=== PATIENT | male | born 1965 | race Caucasian/White ===

== ENCOUNTER 2019-06-16 13:11 | Emergency (ER) | payer BC ==
[2019-06-16] MEDS ORDERED: NA CHLORIDE 0.9% 1,000 ML ONE (13:31)
[2019-06-16 13:53] LABS: Absolute Lymphocytes (CBC) 3.5 K/uL (0.7-4.9); Basophils % 0.9 % (0-1.3); Hematocrit 43.2 % (39.6-49.0); Lymphocytes % 38.8 % (15.3-44.8); MPV 8.5 fL (7.6-11.3); RBC Red Blood Cell Count 4.85 M/uL (4.33-5.43)
--- NOTE | 2019-06-16 14:04 | RAD REPORT ---
EXAM DESCRIPTION: Flaco Single View06/16/2019 1:52 pm CLINICAL HISTORY: Chest pain COMPARISON: 2017 FINDINGS: The lungs appear clear of acute infiltrate. The heart is normal size IMPRESSION: No acute abnormalities displayed
[2019-06-16 14:10] LABS: Albumin 3.7 g/dL (3.4-5.0); Bilirubin Direct 0.2 mg/dL (0-0.2); Bilirubin Total 0.8 mg/dL (0.2-1.0); Magnesium 1.9 mg/dL (1.8-2.4); Potassium 4.2 mmol/L (3.5-5.1); Protein, Total 7.8 g/dL (6.4-8.2); Troponin (Emerg Dept Use Only) 0.04 ng/mL (0.0-0.045)
--- NOTE | 2019-06-16 15:13 | EKG ---
Test Date: 2019-06-16 Test Time: 13:30:18 Mule Rider: KORY MEASUREMENT RESULTS: Intervals: Rate: 65 MI: 160 QRSD: 90 QT: 404 QTc: 420 [place]: P: 37 MI: 160 QRS: 30 T: 32 INTERPRETIVE STATEMENTS: Normal sinus rhythm Possible Lateral infarct, age undetermined Inferior infarct, age undetermined Abnormal ECG Compared to ECG 09/24/2016 18:27:38 Sinus bradycardia no longer present ST (T wave) deviation no longer present Possible ischemia no longer present Myocardial infarct finding still present Electronically Signed On 06-16-19 15:12:50 CDT by Esequiel Moore
--- NOTE | 2019-06-16 17:48 | ER ---
Nurse's Notes [facility] Name: Ajith Villatoro Age: 53 yrs Sex: Male : 1965 Arrival Date: 06/16/2019 Time: 13:14 Bed 7 Private MD: Diagnosis: Chest pain, unspecified Presentation: 06/16 13:32 Presenting complaint: Patient states: couldn't sleep last night, was restless, woke up iw this morning and felt light headed, went to work and had a couple dizzy spells, also had some mild chest pain and mild SOB, hx of ME X 3 years ago. Transition of care: patient was not received from another setting of care. Onset of symptoms was June 16, 2019. Risk Assessment: Do you want to hurt yourself or someone else? Patient reports no desire to harm self or others. Initial Sepsis Screen: Does the patient meet any 2 criteria? No. Patient's initial sepsis screen is negative. Does the patient have a suspected source of infection? No. Patient's initial sepsis screen is negative. Care prior to arrival: None. 13:32 Method Of Arrival: Ambulatory 13:32 Acuity: BRITTANY 2 iw Historical: - Allergies: 13:34 PENICILLINS; iw - PMHx: 13:34 Hyperlipidemia; Hypertension; Myocardial infarction; iw - PSHx: 13:34 Heart stents; iw - Immunization history:: Adult Immunizations not up to date. - Social history:: Smoking status: Patient uses tobacco products, denies chronic smoking, but will smoke occasionally. - Family history:: not pertinent. - Ebola Screening: : Patient negative for fever greater than or equal to 101.5 degrees Fahrenheit, and additional compatible Ebola Virus Disease symptoms Patient denies exposure to infectious person Patient denies travel to an Ebola-affected area in the 21 days before illness onset No symptoms or risks identified at this time. - Hospitalizations: : No recent hospitalization is reported. Screenin:40 Abuse screen: Denies threats or abuse. Denies injuries from another. Nutritional sg screening: No deficits noted. Tuberculosis screening: No symptoms or risk factors identified. Never had TB. Fall Risk None identified. Assessment: 13:36 Reassessment: Patient appears in no apparent distress at this time. Patient and/or sg family updated on plan of care and expected duration. Pain level reassessed. xray at bedside at this time. 13:40 General: Appears in no apparent distress. well groomed, well developed, well nourished, sg Behavior is calm, cooperative, appropriate for age. Pain: Denies pain. Neuro: Level of Consciousness is awake, alert, obeys commands, Oriented to person, place, time, situation, Mobile Paramedical Examiner are equal bilaterally Moves all extremities. Full function Gait is steady, Speech is normal, Facial symmetry appears normal, Pupils are PERRLA. Cardiovascular: Heart tones S1 S2 present Capillary refill is brisk in bilateral fingers Patient's skin is warm and dry. 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 Cardiovascular: Reports chest pain, since last night. Respiratory: Airway is patent Respiratory effort is even, unlabored, Respiratory pattern is regular, symmetrical, Breath sounds are clear. GI: Abdomen is round non-distended. : No signs and/or symptoms were reported regarding the genitourinary system. EENT: No signs and/or symptoms were reported regarding the EENT system. Derm: Skin is pink, warm \T\ dry. Musculoskeletal: Circulation, motion, and sensation intact. Range of motion: intact in all extremities, Swelling absent. 14:59 Reassessment: Patient appears in no apparent distress at this time. Patient and/or sg family updated on plan of care and expected duration. Pain level reassessed. Patient is alert, oriented x 3, equal unlabored respirations, skin warm/dry/pink. Patient states feeling better. 16:17 Reassessment: Patient appears in no apparent distress at this time. Patient and/or ca1 family updated on plan of care and expected duration. Pain level reassessed. Patient is alert, oriented x 3, equal unlabored respirations, skin warm/dry/pink. Repeat Trop and EKG done. Vital Signs: 13:34 BP 131 / 89; Pulse 69; Resp 16; Pulse Ox 97% on R/A; Weight 95.25 kg; Height 5 ft. 8 iw in. (172.72 cm); Pain 0/10; 14:31 BP 113 / 65; Pulse 61; Resp 17; Temp 97.8(TE); Pulse Ox 98% on R/A; mh5 14:57 BP 107 / 62; Pulse 61; Resp 17 S; Temp 97.6; Pulse Ox 96% on R/A; sg 15:29 BP 112 / 75; Pulse 58; Resp 17; Pulse Ox 97% on R/A; mh5 16:17 BP 110 / 69; Pulse 57; Resp 16 S; Pulse Ox 96% on R/A; ca1 16:18 BP 110 / 69; Pulse 69; Resp 17; Temp 97.7(TE); Pulse Ox 97% on R/A; mh5 13:34 Body Mass Index 31.93 (95.25 kg, 172.72 cm) ED Course: 13:14 Patient arrived in ED. mr 13:20 Antony Davila MD is Attending Physician. rn 13:34 Triage completed. iw 13:34 Deshawn Sky, RN is Primary Nurse. sg 13:34 Arm band placed on. iw 13:38 EKG done, by tower technician. reviewed by Antony Davila MD. at1 13:40 Initial lab(s) drawn, by mn, sent to lab. Inserted saline lock: 20 gauge in right [facility] antecubital area, using aseptic technique. Blood collected. 13:41 Patient has correct armband on for positive identification. Bed in low position. Call [facility] light in reach. Side rails up X 1. Warm blanket given. cone machine operator on. Pulse ox on. NIBP on. 13:41 LFT's Sent. [facility] 13:41 Basic Metabolic Panel Sent. [facility] 13:41 CBC with Diff Sent. [facility] 13:41 Magnesium Sent. [facility] 13:42 NT PRO-BNP Sent. [facility] 13:42 Troponin (emerg Dept Use Only) Sent. 5 13:53 XRAY Chest (1 view) In Process Unspecified. EDME 16:16 Troponin (emerg Dept Use Only) Sent. ca1 Administered Medications: 13:43 Drug: NS 0.9% 500 ml Route: IV; Rate: bolus; Site: right antecubital; sg 17:10 Follow up: Urine output 160 ml; Response: No adverse reaction; IV Status: Completed ca1 infusion Output: 17:10 Urine: 160ml; Total: 160ml. ca1 Outcome: 17:48 Discharge ordered by . rn 18:09 Patient left the ED. sg Signatures: Dispatcher [employer] EDMS Deshawn Sky, Reshma Khan RN, Irene, RENE LÓPEZ Antony Davila MD MD rn Gonzales, Amanda, solid fiber paster operator EKG Tat1 Taisha Thornton 5 Lucy Garcia RN RN ca1 Corrections: (The following items were deleted from the chart) 16:17 General: Appears ca1 ca1 16:17 Reassessment: Patient appears in no apparent distress at this time. Patient ca1 and/or family updated on plan of care and expected duration. Pain level reassessed. Patient is alert, oriented x 3, equal unlabored respirations, skin warm/dry/pink. ca1
--- NOTE | 2019-06-16 17:48 | EDPHYS ---
Physician Documentation [facility] Name: Ajith Villatoro Age: 53 yrs Sex: Male : 1965 Arrival Date: 06/16/2019 Time: 13:14 Bed 7 Private MD: ED Physician Antony Davila HPI: 06/16 13:30 This 53 yrs old Male presents to ER via Unassigned with complaints of rn Shortness Of Breath, Doesn't Feel Right. 13:31 The patient or guardian reports chest pain that is located primarily in the anterior rn chest wall, right. Onset: this morning. The pain does not radiate. Associated signs and symptoms: Pertinent positives: dizziness, shortness of breath, Pertinent negatives: abdominal pain, cough, diaphoresis, lower extremity pain, lower extremity swelling, lightheadedness, nausea, near syncope, palpitations, recent travel, syncope, vomiting. The chest pain is described as a heaviness. Duration: The patient or guardian reports multiple episodes, that are intermittent, the episodes last approximately 3 minute(s). Modifying factors: The symptoms are alleviated by nothing. the symptoms are aggravated by nothing. Severity of pain: At its worst the pain was mild in the emergency department the pain has improved. The patient has experienced a previous episode. Reports chest pain, right sided, intermittent for a few minutes each time, not worse or better with anything specific. Reports feels nothing like heart attack 3 years ago when presented here with excruciating chest pain and couldn't get up off of ground. Denies fever/cough/trauma. Began this morning, intermittent, and got concerned when felt dizzy at work. . Historical: - Allergies: 13:34 PENICILLINS; iw - PMHx: 13:34 Hyperlipidemia; Hypertension; Myocardial infarction; iw - PSHx: 13:34 Heart stents; iw - Immunization history:: Adult Immunizations not up to date. - Social history:: Smoking status: Patient uses tobacco products, denies chronic smoking, but will smoke occasionally. - Family history:: not pertinent. - Ebola Screening: : Patient negative for fever greater than or equal to 101.5 degrees Fahrenheit, and additional compatible Ebola Virus Disease symptoms Patient denies exposure to infectious person Patient denies travel to an Ebola-affected area in the 21 days before illness onset No symptoms or risks identified at this time. - Hospitalizations: : No recent hospitalization is reported. ROS: 13:31 Constitutional: Negative for fever, chills, and weight loss, Eyes: Negative for injury, rn pain, redness, and discharge, Neck: Negative for injury, pain, and swelling, Cardiovascular: Negative for palpitations, and edema, Respiratory: Negative for cough, wheezing, and pleuritic chest pain, Abdomen/GI: Negative for abdominal pain, nausea, vomiting, diarrhea, and constipation, Back: Negative for injury and pain, MS/Extremity: Negative for injury and deformity, Skin: Negative for injury, rash, and discoloration, Neuro: Negative for headache, weakness, numbness, tingling, and seizure. Exam: 13:31 Constitutional: This is a well developed, well nourished patient who is awake, alert, rn appears anxious. Ambulatory to room without difficulty or assistance. Head/Face: Normocephalic, atraumatic. Eyes: Pupils equal round and reactive to light, extra-ocular motions intact. Lids and lashes normal. Conjunctiva and sclera are non-icteric and not injected. Cornea within normal limits. Periorbital areas with no swelling, redness, or edema. ENT: dry MM Cardiovascular: Regular rate and rhythm. No pulse deficits. Respiratory: Lungs have equal breath sounds bilaterally, clear to auscultation. No increased work of breathing, no retractions or nasal flaring. Abdomen/GI: soft, non-tender MS/ Extremity: Pulses equal, no cyanosis. Neurovascular intact. Full, normal range of motion. Equal circumference. Neuro: Awake and alert, GCS 15, oriented to person, place, time, and situation. Cranial nerves II-XII grossly intact. Motor strength 5/5 in all extremities. Sensory grossly intact. Cerebellar exam normal. Normal gait. 13:36 ECG was reviewed by the Attending Physician. rn Vital Signs: 13:34 BP 131 / 89; Pulse 69; Resp 16; Pulse Ox 97% on R/A; Weight 95.25 kg; Height 5 ft. 8 iw in. (172.72 cm); Pain 0/10; 14:31 BP 113 / 65; Pulse 61; Resp 17; Temp 97.8(TE); Pulse Ox 98% on R/A; mh5 14:57 BP 107 / 62; Pulse 61; Resp 17 S; Temp 97.6; Pulse Ox 96% on R/A; sg 15:29 BP 112 / 75; Pulse 58; Resp 17; Pulse Ox 97% on R/A; mh5 16:17 BP 110 / 69; Pulse 57; Resp 16 S; Pulse Ox 96% on R/A; ca1 16:18 BP 110 / 69; Pulse 69; Resp 17; Temp 97.7(TE); Pulse Ox 97% on R/A; mh5 13:34 Body Mass Index 31.93 (95.25 kg, 172.72 cm) iw MDM: 13:20 Patient medically screened. rn 15:34 ED course: Pt asymptomatic, trop neg, no ischemia on ECG, offered admission for director of distance learning rule out and w/u, patient declines, told him to atleast repeat trop and ecg and go from there. Patient states is being precautionary given his history, but doesn't feel anything like last time and would like to go home if repeat trop neg. . 17:46 Differential diagnosis: acute myocardial infarction, acute pericarditis, coronary rn artery disease chest wall pain, costochondritis, esophagitis, gastroesophageal reflux disease (GERD), pleurisy, pneumothorax. Data reviewed: vital signs, nurses notes, lab test result(s), EKG, radiologic studies, plain films, and as a result, I will discharge patient. Counseling: I had a detailed discussion with the patient and/or guardian regarding: the historical points, exam findings, and any diagnostic results supporting the discharge/admit diagnosis, lab results, radiology results, the need for outpatient follow up, to return to the emergency department if symptoms worsen or persist or if there are any questions or concerns that arise at home. Special discussion: Special discussion: Based on the history and exam findings, there is no indication for further emergent testing or inpatient evaluation. I discussed with the patient/guardian the need to see the wick tender for further evaluation of the symptoms. I discussed with the patient/guardian the need to see the primary care provider for further evaluation of the symptoms. ED course: Repeat trop without change, no change in ECG. Patient requests to go home, has been walking around ER without symptoms or difficulty.. 06/16 13:30 Order name: LFT's; Complete Time: 14:30 rn 06/16 13:30 Order name: Basic Metabolic Panel; Complete Time: 14:30 rn 06/16 13:30 Order name: CBC with Diff; Complete Time: 14:30 rn 06/16 13:30 Order name: Magnesium; Complete Time: 14:30 rn 06/16 13:30 Order name: NT PRO-BNP; Complete Time: 14:30 rn 06/16 13:30 Order name: Troponin (emerg Dept Use Only); Complete Time: 14:30 rn 06/16 13:30 Order name: XRAY Chest (1 view); Complete Time: 14:30 rn 06/16 13:30 Order name: EKG; Complete Time: 13:31 rn 06/16 13:30 Order name: Cardiac monitoring; Complete Time: 13:30 rn 06/16 13:30 Order name: EKG - Nurse/Tech; Complete Time: 13:30 rn 06/16 13:34 Order name: FSBG Nova; Complete Time: 14:30 06/16 16:11 Order name: Troponin (emerg Dept Use Only); Complete Time: 17:41 rn 06/16 16:11 Order name: EKG; Complete Time: 16:11 rn 06/16 13:30 Order name: IV Saline Lock; Complete Time: 13:35 rn 06/16 13:30 Order name: Labs collected and sent; Complete Time: 13:35 rn 06/16 13:30 Order name: O2 Per Protocol; Complete Time: 13:30 rn 06/16 13:30 Order name: O2 Sat Monitoring; Complete Time: 13:30 rn 06/16 16:11 Order name: EKG - Nurse/Tech; Complete Time: 16:30 rn EC:36 Rate is 65 beats/min. Rhythm is regular. QRS [place] is Normal. OR interval is normal. QRS rn interval is normal. QT interval is normal. No Q waves. T waves are Normal. No ST changes noted. Clinical impression: NSR w/ Non-specific ST/T Changes. Interpreted by me. Reviewed by me. Administered Medications: 13:43 Drug: NS 0.9% 500 ml Route: IV; Rate: bolus; Site: right antecubital; sg 17:10 Follow up: Urine output 160 ml; Response: No adverse reaction; IV Status: Completed ca1 infusion Disposition: 06/16/19 17:48 Discharged to Home. Impression: Chest pain, unspecified. - Condition is Stable. - Discharge Instructions: Nonspecific Chest Pain. - Medication Reconciliation Form, Thank You Letter, Antibiotic Education, Prescription Opioid Use form. - Work release form (06/16/19 18:09). sg - Follow up: Private Physician; When: As needed; Reason: Recheck today's complaints, Re-evaluation by your physician. - Problem is new. - Symptoms have improved. Signatures: Dispatcher [employer] EDDeshawn Lofton RN RN sg Renetta Garcia RN RN iw Nieto, Roman, MD MD rn Acob, Lucy LÓPEZ ca1 Corrections: (The following items were deleted from the chart) 18:09 17:48 06/16/2019 17:48 Discharged to Home. Impression: Chest pain, unspecified. sg Condition is Stable. Forms are Medication Reconciliation Form, Thank You Letter, Antibiotic Education, Prescription Opioid Use. Follow up: Private Physician; When: As needed; Reason: Recheck today's complaints, Re-evaluation by your physician. Problem is new. Symptoms have improved. rn
[2019-06-16 18:32] VITALS: BP 110/69
[2019-06-16 18:34] VITALS: TEMP 97.7; O2SAT 97
--- NOTE | 2019-06-17 12:14 | EKG ---
Test Date: 2019-06-16 Test Time: 16:17:06 Reel Winder: TITO MEASUREMENT RESULTS: Intervals: Rate: 59 ME: 166 QRSD: 90 QT: 426 QTc: 421 [place]: P: 37 ME: 166 QRS: 29 T: 16 INTERPRETIVE STATEMENTS: Sinus bradycardia Possible Lateral infarct, age undetermined Inferior infarct, age undetermined Abnormal ECG Compared to ECG 06/16/2019 13:30:18 Sinus rhythm no longer present Myocardial infarct finding still present Electronically Signed On 06-17-19 12:09:36 CDT by Naveed Moreau
== END 2019-06-16 18:09 | disposition home or self-care (01) ==
LOC: ER 13:11
DX: R07.9 Chest pain, unspecified (principal); I10 Essential (primary) hypertension; I25.2 Old myocardial infarction; E78.5 Hyperlipidemia, unspecified; Z72.0 Tobacco use; Z88.0 Allergy status to penicillin; Z95.818 Presence of other cardiac implants and grafts
CPT/HCPCS: 96361; 93005 ×2; 85025; 80048; 36415; 83735; 82962; 80076; 84484 ×2; 83880; 71045; 96360; 99284; J7030

== ENCOUNTER 2021-09-12 08:30 | Day surgery (SDC) | payer BC ==
[2021-09-09 13:33] LABS: Absolute Lymphocytes (CBC) 3.3 K/uL (0.7-4.9); Hematocrit 45.3 % (39.6-49.0); Lymphocytes % 36.4 % (15.3-44.8); MPV 8.5 fL (7.6-11.3); RBC Red Blood Cell Count 5.18 M/uL (4.33-5.43)
[2021-09-09 13:42] LABS: Protime INR 0.98
[2021-09-09 13:48] LABS: BUN Blood Urea Nitrogen 11 mg/dL (7-18); Bicarbonate 25 mmol/L (21-32); Glucose Level 88 mg/dL (74-106); Sodium Level 141 mmol/L (136-145)
[2021-09-09 13:49] LABS: Potassium 4.3 mmol/L (3.5-5.1)
--- NOTE | 2021-09-09 13:49 | RAD REPORT ---
EXAM DESCRIPTION: Flaco Bowling (2 Views)09/09/2021 1:24 pm CLINICAL HISTORY: Preop for cardiac catheterization COMPARISON: 2019 FINDINGS: The lungs appear clear of acute infiltrate. The heart is normal size IMPRESSION: No acute abnormalities displayed
[~2021-09-12 08:30] MED LIST: ATROPINE SULF 1 MG/10 ML SYR IV ONE; FENTANYL CITR 100 MCG/2 ML ONE; HEPA 1000U/500MLS 1,000 UNIT/500 ML BAG IV ONE; LIDOCAINE 1% 20 ML MDV ONE; MIDAZOLAM HCL 2 MG/2 ML INJ ONE; NA CHLORIDE 0.9% 50 ML ONE; NITROGLYCERIN/D5W 25 MG/250 ML BTL IV ONE
[2021-09-12] MEDS ORDERED: NA CHLORIDE 0.9% 500 ML ONE (08:35)
[2021-09-12 09:12] VITALS: TEMP 97
[2021-09-12] MEDS ORDERED: MIDAZOLAM HCL 2 MG/2 ML INJ ONE (09:20)
--- NOTE | 2021-09-12 11:09 | OP ---
Surgeon: Naveed Moreau MD House Coordinator: Berenice Quiroz. Indication: Chest pain, positive stress test, history of CAD, status post stents. Procedures: Left heart catheterization, selective coronary arteriogram, angioplasty, and stent of th e proximal RCA. Procedure In Detail: The patient was brought to the ear mold laboratory technician as an outpatient, prepped and draped in routine sterile fashion. Given Versed and fentanyl for sedation. A 6-Bahrain[place] sheath introduced in t he right common femoral artery successfully using the Seldinger technique and 10 cc of Xylocaine. Ju Tecturains catheter left and right were used to cannulate the left main and right main respectively. He h ad a normal LAD. Had a 30% to 40% mid circumflex. He was right dominant. He had a 40% proximal LAD stenosis before the stent in the LAD. The stent was open and patent. The JR4 catheter cannulated t he right main and found a 99% stenosis in the proximal RCA that was rather long. We decided to inter vene. He was given Angiomax and Effient 60 mg daily initially. A JR4 guide catheter was used to can nulate the RCA. However, the guide was with deep through the lesion and I could not perform an adequ ate angioplasty or stent, so I changed this to a 3DRC. A [place] wire was used to cross the lesion lindsey ccessfully. A 2.5 x 15 balloon was used to pre-dilate the lesion. The balloon was an Emerge balloon . After that, a 3.0 x 24 Synergy stent was used to cover the entire proximal RCA area with 0% residu al. There were no complications. Blood loss was 10 cc. The patient as stated earlier received Lucinda omax and Effient during the procedure as well as aspirin. Anesthesia: Total conscious sedation was 60 minutes. Postoperative Diagnosis: Status post successful angioplasty and stent of the proximal RCA. Continue medical treatment. He is on aspirin, Plavix, Lipitor at home. He will stay in the hospital for 8 hours. Angiography in the groin was normal. Angio-Seal was used to close the case. He will go home today about 4 p.m. I will see him in the office in the next 2 weeks. CHUCKIE/ANDRES Voice ID: [id number] Report ID: [id number]
[2021-09-12 12:11] VITALS: O2SAT 97
[2021-09-12] MEDS ORDERED: PRASUGREL (EFFIENT) 10 MG TAB PO ONE (13:30)
[2021-09-12 14:41] VITALS: BP 123/65
== END 2021-09-12 14:00 | disposition home or self-care (01) ==
LOC: CCL 08:30
DX: I25.110 Atherosclerotic heart disease of native coronary artery with unstable angina pectoris (principal); I65.21 Occlusion and stenosis of right carotid artery; I10 Essential (primary) hypertension; E78.2 Mixed hyperlipidemia; Z95.5 Presence of coronary angioplasty implant and graft; Z87.891 Personal history of nicotine dependence; Z20.822 Contact with and (suspected) exposure to COVID-19; Z88.0 Allergy status to penicillin; Z79.02 Long term (current) use of antithrombotics/antiplatelets; Z79.82 Long term (current) use of aspirin; Z82.49 Family history of ischemic heart disease and other diseases of the circulatory system
CPT/HCPCS: 85025; 80048; 36415; 85610; 85730; 71046; 92928; 93454; U0003; C1893; C1760; C1725; J2250; J3010; J0583; J7040; J1644